=== PATIENT | female | born 1960 | race Caucasian/White ===

== ENCOUNTER 2017-06-16 17:40 | Emergency (ER) | payer BC ==
[~2017-06-16] VITALS: Ht 165.1 cm; Wt 63.5 kg
--- NOTE | 2017-06-16 19:32 | Diagnostic Imaging Report ---
EXAMINATION: Head CT without contrast. HISTORY:Status post fall. COMPARISON:None. TECHNIQUE: Multidetector axial images were obtained from the foramen magnum to the vertex without contrast. The images were reconstructed using brain and bone algorithms. Thin section brain images were reformatted into coronal and sagittal planes. Intravenous contrast: None IMAGE QUALITY: Acceptable. FINDINGS: Skull/scalp: Moderate right frontal scalp edema/hematoma. No associated soft tissue emphysema or radiopaque foreign body. No acute depressed or displaced calvarial fracture. Parenchyma: No abnormal density. No acute hemorrhage, mass or acute major vascular territorial infarct. Arteries: No density suggestive of thrombosis. Dural sinuses: No abnormal density suggestive of thrombosis. Ventricles: No hydrocephalus or displacement. Extra-axial spaces: No abnormality. Brain volume: Moderate generalized cerebral volume loss. Craniocervical junction: No mass, Chiari malformation, or basilar invagination. Sella: No mass. Paranasal/mastoid sinuses: Imaged portions unremarkable. IMPRESSION: 1. Moderate right frontal scalp edema/hematoma. No acute fracture. 2. No acute posttraumatic intracranial abnormality. 3. Moderate generalized cerebral volume loss. Signed by: Dr. Lillian Ramos M.D. on 06/16/2017 7:28 PM
--- NOTE | 2017-06-16 19:34 | Diagnostic Imaging Report ---
RIGHT HAND - 3 VIEWS HISTORY: Fall COMPARISON: None available. FINDINGS: Bones: No acute displaced fracture. Osseous alignment is within normal limits. Joints: Moderate degenerative changes of the first interphalangeal joint. Soft tissues: The soft tissues appear unremarkable. IMPRESSION: No acute radiographic abnormality. Signed by: Dr. Sanya Sun D.O., M.M.M. on 06/16/2017 7:30 PM
--- NOTE | 2017-06-16 19:37 | Diagnostic Imaging Report ---
History: Status post fall. Comparison studies: None Technique: Axial images were obtained through the cervical region.. Coronal and sagittal images reconstructed from the axial data.. Intravenous contrast: None Findings: Fractures: None. Soft tissue injuries: None. Atlantoaxial articulation: Intact. Alignment: Loss of normal cervical lordosis is either positional or due to muscle spasm. No scoliosis. Cervicomedullary junction: No abnormalities. The foramen magnum is patent. Soft tissues: No abnormalities. Vertebrae: No fractures, infection or neoplasm. Degenerative changes: C4-C5: Posterior disc osteophyte complex without canal stenosis. Mild left foraminal stenosis due to facet and uncovertebral arthrosis. Mild degenerative disc disease. C5-C6 posterior disc osteophyte complex results in mild canal stenosis. Bilateral moderate foraminal stenosis due to facet and uncovertebral arthrosis. Moderate degenerative disc disease. C6-C7: Posterior disc osteophyte complex results in moderate canal stenosis. Moderate right and severe left foraminal stenosis due to facet and uncovertebral arthrosis. Moderate degenerative disc disease. C7-T1: 1.5 mm grade 1 anterolisthesis. Severe right foraminal stenosis due to facet and uncovertebral arthrosis.. IMPRESSION: 1. No acute cervical spine fracture. Loss of normal cervical lordosis is either positional or due to muscle spasm. 2. Ligament, spinal cord and or vascular abnormalities cannot be excluded on the basis of this examination. 3. Cervical spondylosis as detailed above. Signed by: Dr. Lillian Ramos M.D. on 06/16/2017 7:34 PM
--- NOTE | 2017-06-16 19:45 | Diagnostic Imaging Report ---
History:Status post fall. Comparison studies: None Technique: Axial images were obtained through the maxillofacial region. Coronal and sagittal images reconstructed from the axial data. Intravenous contrast: None Findings: Soft tissues: Moderate right frontal scalp soft tissue edema/hematoma that extends to the forehead. No associated soft tissue emphysema or radiopaque foreign body. Bones: No fractures or bony abnormalities. Orbits: Globes: Intact Extra or intraconal abnormalities: None. Paranasal sinuses: Mild mucosal thickening in left frontal sinus and left anterior ethmoid sinus. Incidental finding: Expansile cystic lesion in the left maxillary alveolar margin approximately measures 1.9 x 1.6 x 1.2 cm, centered about left maxillary molars possibly represents periapical radicular cyst. IMPRESSION: 1. Moderate right frontal scalp and forehead soft tissue edema/hematoma. 2. No acute fracture. Signed by: Dr. Lillian Ramos M.D. on 06/16/2017 7:41 PM
[2017-06-16] MEDS ORDERED: LOSARTAN POTASS25 MG PO (20:25)
[2017-06-16] MEDS ORDERED: LEVOTHYROXINE75 MCG PO (20:27)
[2017-06-16] MEDS ORDERED: ULTRAM 50MG50 MG PO (21:09)
[2017-06-16 22:00] VITALS: BP 205/93
== END 2017-06-16 22:03 | disposition home or self-care (01) ==
LOC: ER 17:40
DX: S06.0X0A Concussion without loss of consciousness, initial encounter (principal); G89.11 Acute pain due to trauma; M79.641 Pain in right hand; W18.30XA Fall on same level, unspecified, initial encounter; Y92.008 Other place in unspecified non-institutional (private) residence as the place of occurrence of the external cause; I10 Essential (primary) hypertension; E03.9 Hypothyroidism, unspecified
CPT/HCPCS: 70450; 70486; 72125; 99283

== ENCOUNTER → 2017-12-30 | Outpatient (CLI) | payer BC ==
[~2017-12-30] MED LIST: LEVOTHYROXINE75 MCG PO; LOSARTAN POTASS25 MG PO; ULTRAM 50MG50 MG PO
--- NOTE | 2017-12-30 12:10 | Diagnostic Imaging Report ---
PROCEDURE:US RETROPERITONEAL ( KIDNEY ). COMPARISON:None. INDICATIONS:Chronic Kidney Diease Stage 3 TECHNIQUE: Savage-scale and color sonographic images of the bilateral kidneys and bladder where obtained in transverse and longitudinal planes. FINDINGS: RIGHT KIDNEY: 10.5 cm, cortex 1.1 cm Cysts: None Solid masses: None Stones: None Hydronephrosis: None Echogenicity: Normal LEFT KIDNEY: 10.3 cm, cortex 1.3 cm Cysts: None Solid masses: None Stones: None Hydronephrosis: None Echogenicity: Normal Bladder: No focal lesions. Bilateral ureteral jets are identified. Prevoid bladder volume 132.6 CC. Post void bladder volume 28.8 CC. CONCLUSION: 1. Normal bilateral renal size. No hydronephrosis, stones, or focal lesions. 2. No significant postvoid residual. Nick Osman M.D. Dictated by: Nick Osman M.D. on 12/30/2017 at 12:16 Electronically approved by: Nick Osman M.D. on 12/30/2017 at 12:16
--- NOTE | 2017-12-30 12:11 | Diagnostic Imaging Report ---
PROCEDURE:URINARY BLADDER ULTRASOUND COMPARISON:None. INDICATIONS:Chronic Kidney Diease Stage 3 CONCLUSION: Please refer to renal ultrasound performed at the same date and time for full dictated report. Nick Osman M.D. Dictated by: Nick Osman M.D. on 12/30/2017 at 12:16 Electronically approved by: Nick Osman M.D. on 12/30/2017 at 12:16
== END ==
LOC: US 08:49
PROVIDERS: ATTEND Internal Medicine Nephrology
DX: N18.3 Chronic kidney disease, stage 3 (moderate) (principal)
CPT/HCPCS: 76770; 76857

== ENCOUNTER → 2022-11-10 | Day surgery (SDC) | payer BC, OTHER ==
[2022-11-06 13:14] LABS: BASOPHILS # (AUTO) 0.1 (0.0-0.1); BASOPHILS % 0.8 % (0.0-1.0); EOSINOPHILS # (AUTO) 0.3 (0.0-0.4); EOSINOPHILS % 3.2 % (0.0-6.0); HEMATOCRIT 37.3 % (34.2-44.1); HEMOGLOBIN 12.4 g/dL (12.0-16.0); LYMPHOCYTES # (AUTO) 2.9 (1.0-3.2); LYMPHOCYTES % 37.2 % (18.0-39.1); MEAN CORPUSCULAR HEMOGLOBIN 30.4 pg (28-32); MEAN CORPUSCULAR HGB CONC 33.2 g/dL (31-35); MEAN CORPUSCULAR VOLUME 91.4 fL (81-99); MONOCYTES # (AUTO) 0.7 (0.2-0.8); MONOCYTES % 8.7 % (4.4-11.3); NEUTROPHILS # (AUTO) 3.9 (2.1-6.9); PLATELET COUNT 209 x10e3/uL (140-360); RED BLOOD COUNT 4.08 x10e6/uL (3.6-5.1); RED CELL DISTRIBUTION WIDTH 12.9 % (11.7-14.4)
[2022-11-06 13:43] LABS: INR 0.94; PROTHROMBIN TIME 13.1 seconds (11.9-14.5)
[2022-11-06 13:44] LABS: PARTIAL THROMBOPLASTIN TIME 30.9 seconds (23.8-35.5)
[2022-11-06 13:57] LABS: ANION GAP 10.7 mmol/L (8-16); CALCIUM 9.3 mg/dL (8.4-10.2); CREATININE, SERUM 1.02 mg/dL (0.57-1.11); POTASSIUM 4.7 mmol/L (3.5-5.1)
[~2022-11-10] MED LIST changes: +AMLODIPINE BESYL5 MG PO; +FENTANYL CITRATE/PF 100MCG/2 ML INJ ONE; +MIDAZOLAM HCL 2 MG/2 ML VIAL ONE; +ONDANSETRON HCL INJ 2MG/ML 2ML 2 MG/ML VIAL ONE; +OR PHACO EYE KIT ONE; +POVIDONE IODINE 0.05% 0.05 % ML PO ONE; +PREOP PHACO EYE KIT ONE
[2022-11-10 12:05] VITALS: BP 126/70; PULSE 47; RESP 18; O2SAT 96
== END | disposition home or self-care (01) ==
LOC: OR 07:44
PROVIDERS: ATTEND Ophthalmology
DX: H25.12 Age-related nuclear cataract, left eye (principal); I12.9 Hypertensive chronic kidney disease with stage 1 through stage 4 chronic kidney disease, or unspecified chronic kidney disease; N18.2 Chronic kidney disease, stage 2 (mild); E03.9 Hypothyroidism, unspecified; F17.210 Nicotine dependence, cigarettes, uncomplicated; Z01.812 Encounter for preprocedural laboratory examination; Z79.899 Other long term (current) drug therapy
CPT/HCPCS: 36415; 66984; 80048; 85025; 85610; 85730; J2250; J2405; J3010; V2632